=== PATIENT | male | born 1975 | race Caucasian/White ===

== ENCOUNTER 2016-10-02 15:26 | Emergency (ER) | payer BC ==
[2016-10-02] MEDS ORDERED: PROMETHAZINE HCL 25 MG TABLET PO ONE (17:05)
--- NOTE | 2016-10-02 17:10 | ER Document Report ---
ED Medical Screen (RME) - General Chief Complaint: Abdominal Pain Stated Complaint: RIGHT SIDE PAIN Time Seen by Provider: 10/02/16 17:04 Notes: Patient is complaining of pain in his right upper quadrant and thinks he might have appendicitis. The pain began last night. Has been vomiting, no diarrhea. No UTI symptoms. No fevers. Has had some chills and sweats. Patient relates a history of having been in [place] 6 months ago and ended up getting C. difficile colitis and eventually pancreatitis from the C. difficile infection. Patient says his pain is currently having is not the same as he had with the pancreatitis. Past medical history: GERD, high cholesterol, hypertension. TRAVEL OUTSIDE OF THE [place] IN LAST 30 DAYS: No - Related Data Allergies/Adverse Reactions: No Known Allergies Allergy (Verified 10/02/16 15:29) Past Medical History Renal/ Medical History: Denies: Hx Peritoneal Dialysis Physical Exam - Vital signs Vitals: Temp Pulse Resp BP Pulse Ox 98.5 F 101 H 22 H 120/89 H 100 10/02/16 15:29 10/02/16 15:29 10/02/16 15:29 10/02/16 15:29 10/02/16 15:29 Course - Vital Signs Vital signs: Temp Pulse Resp BP Pulse Ox 98.5 F 101 H 22 H 120/89 H 100 10/02/16 15:29 10/02/16 15:29 10/02/16 15:29 10/02/16 15:29 10/02/16 15:29
[2016-10-02 17:46] LABS: ABSOLUTE BASOPHILS # (AUTO) 0.1 10^3/uL (0.0-0.2); ABSOLUTE LYMPHOCYTES (AUTO) 1.1 10^3/uL (0.5-4.7); ABSOLUTE MONOCYTES (AUTO) 0.5 10^3/uL (0.1-1.4); ABSOLUTE NEUT (AUTO) 6.8 10^3/uL (1.7-8.2); BASOPHILS % (AUTO) 0.8 % (0-2); EOSINOPHILS % (AUTO) 0.6 % (0-6); HEMATOCRIT 40.8 % (37.9-51.0); HGB HCT DIFFERENCE 1.2; LYMPHOCYTES % (AUTO) 12.7 % (13-45); MEAN CORPUSCULAR HEMOGLOBIN 34.7 pg (27.0-33.4); MEAN CORPUSCULAR HGB CONC 34.3 g/dL (32.0-36.0); MEAN CORPUSCULAR VOLUME 101 fl (80-97); MONOCYTES % (AUTO) 5.8 % (3-13); RED BLOOD COUNT 4.03 10^6/uL (4.35-5.55); RED CELL DISTRIBUTION WIDTH 14.5 % (11.5-14.0); SEGMENTED NEUTROPHILS % (AUTO) 80.1 % (42-78); WHITE BLOOD COUNT 8.5 10^3/uL (4.0-10.5)
--- NOTE | 2016-10-02 18:47 | ER Document Report ---
ED GI/ - General Mode of Arrival: Ambulatory Information source: Patient TRAVEL OUTSIDE OF THE [place] IN LAST 30 DAYS: No - HPI Patient complains to provider of: Abdominal pain, Vomiting Onset: Other - Refer to HPI notes Location: [facility] Similar symptoms previously: No Recently seen / treated by doctor: No <MILAN COLÓN - Last Filed: 10/02/16 21:55> <ALDO PRADHAN - Last Filed: 10/03/16 03:23> - General Chief Complaint: Abdominal Pain Stated Complaint: RIGHT SIDE PAIN Time Seen by Provider: 10/02/16 17:04 Notes: Patient is a 40 year old male presenting to the emergency department for abdominal and chest wall pain. Patient states he woke up with the pain. Patient states it is in his diaphragm and goes into his back. Patient also complains of vomiting and chills. Patient denies any difficulty breathing, fever, or cough. Patient has had a history of C. Diff and pancreatitis but states this does not feel the same. Patient has no known allergies. (MILAN COLÓN) - Related Data Allergies/Adverse Reactions: No Known Allergies Allergy (Verified 10/02/16 15:29) Past Medical History - General Information source: Patient - Social History Smoking Status: Never Smoker Cigarette use (# per day): No Chew tobacco use (# tins/day): No Frequency of alcohol use: None Drug Abuse: None Family History: None Patient has suicidal ideation: No Patient has homicidal ideation: No GI Medical History: Reports: Other - pancreatitis Infectious Medical History: Reports: Hx C-Diff Surgical Hx: Negative <MILAN COLÓN - Last Filed: 10/02/16 21:55> Review of Systems - Review of Systems Constitutional: See HPI, Chills. denies: Fever EENT: No symptoms reported Cardiovascular: No symptoms reported Respiratory: No symptoms reported. denies: Cough Gastrointestinal: See HPI, Abdominal pain, Vomiting Genitourinary: No symptoms reported Male Genitourinary: No symptoms reported Musculoskeletal: See HPI, Back pain Skin: No symptoms reported Hematologic/Lymphatic: No symptoms reported Neurological/Psychological: No symptoms reported -: Yes All other systems reviewed and negative <MILAN COLÓN - Last Filed: 10/02/16 21:55> Physical Exam - Vital signs Interpretation: Normal - General General appearance: Appears well, Alert In distress: Mild - HEENT Head: Normocephalic, Atraumatic Eyes: Normal Pupils: PERRL Mucous membranes: Moist - Respiratory Respiratory status: No respiratory distress Chest status: Tender - right anterior lateral posterior chest wall tenderness to palpation Breath sounds: Normal Chest palpation: Normal - Cardiovascular Rhythm: Regular Heart sounds: Normal auscultation Murmur: No - Abdominal Inspection: Normal Distension: No distension Bowel sounds: Normal Tenderness: Tender - RUQ tenderness to palpation Organomegaly: No organomegaly - Back Back: Normal, Nontender - Extremities General upper extremity: Normal inspection, Normal ROM, Normal strength General lower extremity: Normal inspection, Normal ROM, Normal strength - Neurological Neuro grossly intact: Yes Cognition: Normal Orientation: AAOx4 Emma Coma Scale Eye Opening: Spontaneous Emma Coma Scale Verbal: Oriented Emma Coma Scale Motor: Obeys Commands Emma Coma Scale Total: 15 Speech: Normal Sensory: Normal - Psychological Associated symptoms: Normal affect, Normal mood - Skin Skin Temperature: Warm Skin Moisture: Dry <MILAN COLÓN - Last Filed: 10/02/16 21:55> Course - Laboratory Result Diagrams: 10/02/16 17:35 10/02/16 20:00 <MILAN COLÓN - Last Filed: 10/02/16 21:55> - Laboratory Result Diagrams: 10/02/16 17:35 10/02/16 20:00 - Diagnostic Test Radiology reviewed: Reports reviewed <ALDO PRADHAN - Last Filed: 10/03/16 03:23> - Re-evaluation Re-evalutation: 10/02 Patient presents to the emergency department with right upper quadrant/right chest pain. It is worse with movement. Patient has a negative d-dimer. Blood work is within normal limits. Patient has some mild pancreatic inflammation on CT but he does have a history of chronic pancreatitis. No evidence for infection. No evidence for gallbladder infection at this time. Patient will be discharged home with pain medication. States that he is hungry at this time and would like to go home. Stable at time of discharge. Return for any worsening or concerning symptoms. (ALDO PRADHAN) - Vital Signs Vital signs: Temp Pulse Resp BP Pulse Ox 98.5 F 87 16 123/76 95 10/02/16 21:54 10/02/16 21:54 10/02/16 21:54 10/02/16 21:54 10/02/16 21:54 - Laboratory Laboratory results interpreted by me: 10/02/16 10/02/16 10/02/16 17:35 18:40 20:00 RBC 4.03 L MCV 101 H MCH 34.7 H RDW 14.5 H Plt Count 116 L Seg Neutrophils % 80.1 H Lymphocytes % 12.7 L Sodium 135.9 L BUN 22 H Glucose 173 H Calcium 8.2 L Total Bilirubin 1.4 H AST 74 H ALT 90 H Urine Protein 100 H Urine Ketones TRACE H Urine Bilirubin SMALL H Urine Ascorbic Acid 40 H Discharge <MILAN COLÓN - Last Filed: 10/02/16 21:55> <ALDO PRADHAN - Last Filed: 10/03/16 03:23> - Discharge Clinical Impression: Chest wall pain Condition: Stable Disposition: HOME, SELF-CARE Instructions: Chest Wall Pain ([facility]) Prescriptions: Ondansetron [Zofran Odt 4 mg Tablet] 1 - 2 tab PO Q4H PRN #15 tab.rapdis PRN Reason: For Nausea/Vomiting Oxycodone HCl/Acetaminophen [Percocet 5-325 mg Tablet] 1 - 2 tab PO Q4H PRN #15 tablet PRN Reason: Forms: Return to Work Scribe Attestation: 10/03/16 03:23 I personally performed the services described in the documentation, reviewed and edited the documentation which was dictated to the scribe in my presence, and it accurately records my words and actions. (ALDO PRADHAN) Scribe Documentation - Scribe Written by Damien:: Damien Spring, 10/02/16 22:13 acting as scribe for :: Augusto <MILAN COLÓN - Last Filed: 10/02/16 21:55>
[2016-10-02 19:11] LABS: APPEARANCE,URINE SLIGHTLY-CLOUDY; BILIRUBIN,URINE SMALL (NEGATIVE); GLUCOSE, URINE NEGATIVE (NEGATIVE); KETONES,URINE TRACE mg/dL (NEGATIVE); LEUKOCYTE ESTERASE,URINE NEGATIVE (NEGATIVE); NITRITE,URINE NEGATIVE (NEGATIVE); PROTEIN,URINE 100 mg/dL (NEGATIVE); UROBILINOGEN,URINE NEGATIVE mg/dL (<2.0)
[2016-10-02] MEDS ORDERED: ONDANSETRON HCL INJ/PF 4 MG/2 ML SDV IV ONE (19:48)
[2016-10-02] MEDS ORDERED: KETOROLAC TROMETHAMINE INJ/PF 30 MG/1 ML SDV IV ONE (19:48)
[2016-10-02] MEDS ORDERED: NORMAL SALINE 1000 ML 1,000 ML IV ONE (19:48)
[2016-10-02 20:21] LABS: ALANINE AMINOTRANSFERASE 90 U/L (21-72); ALKALINE PHOSPHATASE 85 U/L (38-126); ANION GAP 14 (5-19); ASPARTATE AMINO TRANSFERASE 74 U/L (17-59); BILIRUBIN,DIRECT 0.4 mg/dL (0.0-0.4); BILIRUBIN,TOTAL 1.4 mg/dL (0.2-1.3); BLOOD UREA NITROGEN 22 mg/dL (7-20); CALCIUM 8.2 mg/dL (8.4-10.2); CARBON DIOXIDE 23 mmol/L (22-30); CHLORIDE 99 mmol/L (98-107); CREATININE RESULT 0.96 mg/dL (0.52-1.25); GLUCOSE 173 mg/dL (75-110); LIPASE 294.7 U/L (23-300); SODIUM 135.9 mmol/L (137-145); TOTAL PROTEIN 7.1 g/dL (6.3-8.2)
[2016-10-02 21:58] VITALS: BP 123/76
== END 2016-10-02 22:00 | disposition home or self-care (01) ==
LOC: ER 15:26
DX: R07.89 Other chest pain (principal); K85.90 Acute pancreatitis without necrosis or infection, unspecified; R10.11 Right upper quadrant pain; R11.10 Vomiting, unspecified; R68.83 Chills (without fever); M54.9 Dorsalgia, unspecified; Z87.19 Personal history of other diseases of the digestive system; Z86.19 Personal history of other infectious and parasitic diseases
CPT/HCPCS: 99284; 96361; 96374; 96375; 36415; 83690; 85025; 80053; 81001; 85379; 76705; 76380; J1885; J2405; J7030